=== PATIENT | male | born 1960 | race Caucasian/White ===

== ENCOUNTER 2016-08-27 11:46 | Day surgery (SDC) | payer OTHER ==
[2016-08-27 12:04] VITALS: BMI 28.3
--- NOTE | 2016-08-27 12:38 | CP.SDSHP ---
Same Day Surgery H & P - History Proposed Procedure: colonoscopy - Previous Medical/Surgical History Cardiac: Hypertension Endocrine/Metabolic: Diabetes - Allergies Allergies: Allergies Penicillins Allergy (Verified 08/27/16 12:04) SHORTNESS OF BREATH - Physical Exam Vital Signs: Vital Signs 08/27/16 12:11 Temperature 98 F Pulse Rate 91 H Respiratory 17 Rate Blood Pressure 138/93 H O2 Sat by Pulse 98 Oximetry - Date & Time Date: 08/27/16 Time: 12:37 Short Stay Discharge - Short Stay Discharge Admitting Diagnosis/Reason for Visit: ENCOUNTER FOR SCREENING FOR MALIGNANT NEOPLASM OF Disposition: HOME/ ROUTINE
[2016-08-27 13:04] VITALS: O2SAT 100
[2016-08-27] MEDS ORDERED: Propofol 10 mg/ml Inj (20 ML) ONE ×2 (13:14→13:18)
[2016-08-27 13:56] VITALS: TEMP 97.1
[2016-08-27 14:36] VITALS: BP 123/80; PULSE 80; RESP 15
== END 2016-08-27 14:27 | disposition home or self-care (01) ==
LOC: C.ENDO 11:46
PROVIDERS: ATTEND Colon & Rectal Surgery
DX: D12.4 Benign neoplasm of descending colon (principal); K57.30 Diverticulosis of large intestine without perforation or abscess without bleeding; K64.8 Other hemorrhoids
CPT/HCPCS: 45388; 88305; J2704